=== PATIENT | female | born 1995 | race Asian ===

== ENCOUNTER 2021-08-29 11:48 | Emergency (ER) | payer SELFPAY ==
[2021-08-29 13:35] LABS: Absolute Lymphocytes (CBC) 1.2 K/uL (0.7-4.9); Hematocrit 38.3 % (36.0-45.0); Lymphocytes % 21.5 % (15.3-44.8); MPV 8.2 fL (7.6-11.3); RBC Red Blood Cell Count 4.24 M/uL (3.86-4.86)
[2021-08-29 13:52] LABS: Protime INR 0.95
[2021-08-29 15:28] LABS: ALT/SGPT 19 U/L (12-78); AST/SGOT 13 U/L (15-37); Albumin 4.3 g/dL (3.4-5.0); Alkaline Phosphatase 47 U/L (45-117); BUN Blood Urea Nitrogen 9 mg/dL (7-18); Bicarbonate 28 mmol/L (21-32); Bilirubin Direct 0.2 mg/dL (0-0.2); Bilirubin Total 0.6 mg/dL (0.2-1.0); Glucose Level 100 mg/dL (74-106); Magnesium 2.4 mg/dL (1.8-2.4); Protein, Total 8.4 g/dL (6.4-8.2); Sodium Level 140 mmol/L (136-145); Troponin (Emerg Dept Use Only) < 0.02 ng/mL (0.0-0.045)
--- NOTE | 2021-08-29 16:20 | RAD REPORT ---
EXAM DESCRIPTION: Kobe Nolasco (2 Views)08/29/2021 4:14 pm CLINICAL HISTORY: Syncope COMPARISON: None FINDINGS: The lungs appear clear of acute infiltrate. The heart is normal size IMPRESSION: No acute abnormalities displayed
--- NOTE | 2021-08-29 17:33 | ER ---
Nurse's Notes [facility] Name: Marci Girard Age: 26 yrs Sex: Female : 1995 Arrival Date: 08/29/2021 Time: 11:53 Bed Waiting Private MD: Diagnosis: Syncope Near;Nausea with vomiting, unspecified Presentation: 08/29 11:59 Chief complaint: Patient states: syncope while at work. pt reported not sleeping well manrique and not eating much d/t work. Coronavirus screen: Vaccine status: Patient reports receiving the 2nd dose of the covid vaccine. Ebola Screen: Patient denies travel to an Ebola-affected area in the 21 days before illness onset. Initial Sepsis Screen: Does the patient meet any 2 criteria? No. Patient's initial sepsis screen is negative. Does the patient have a suspected source of infection? No. Patient's initial sepsis screen is negative. Risk Assessment: Do you want to hurt yourself or someone else? Patient reports no desire to harm self or others. Onset of symptoms was August 29, 2021. 11:59 Method Of Arrival: EMS: [facility] 11:59 Acuity: [place] 3 manrique Triage Assessment: 12:03 General: Appears in no apparent distress. Behavior is cooperative. manrique 17:38 Neuro: Reports a syncopal episode. 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 - Social history:: Smoking status: Patient denies any tobacco usage or history of. Screenin:35 Abuse screen: Denies threats or abuse. Denies injuries from another. Nutritional manrique screening: No deficits noted. Tuberculosis screening: No symptoms or risk factors identified. Fall Risk None identified. Assessment: 17:35 Pain: Denies pain. Neuro: Level of Consciousness is awake, alert, obeys commands, manrique Oriented to person, place, time, situation. Cardiovascular: Reports syncope, Rhythm is regular. Vital Signs: 11:59 BP 119 / 89; Pulse 100; Resp 18; Temp 98.2(O); Pulse Ox 100% ; Weight 54.43 kg; Height manrique 5 ft. 4 in. (162.56 cm); 11:59 Body Mass Index 20.60 (54.43 kg, 162.56 cm) manrique ED Course: 11:53 Patient arrived in ED. 3 12:02 Buzz Mario PA is PHCP. rashawn 12:02 Buzz Burch MD is Attending Physician. cp 12:03 Triage completed. manrique 16:14 XRAY Chest Pa And Lat (2 Views) In Process Unspecified. EDMS 17:35 Patient has correct armband on for positive identification. manrique 17:35 No provider procedures requiring assistance completed. Accessed Maintain EMS IV. manrique Dressing intact. Gauge \T\ site: 20g lac. 17:37 IV discontinued. manrique 17:38 Arm band placed on. manrique Administered Medications: No medications were administered Outcome: 17:32 Discharge ordered by . cp 17:35 Discharged to home ambulatory. manrique 17:35 Condition: good 17:35 Discharge instructions given to patient, Prescriptions given X 1. 17:39 Patient left the ED. manrique Signatures: Dispatcher [employer] EDTN Buzz Mario PA PA cp Herrera, Deanna [facility] Ina-StagerCatherine, RN RN manrique
--- NOTE | 2021-08-29 17:33 | EDPHYS ---
Physician Documentation [facility] Name: Marci Girard Age: 26 yrs Sex: Female : 1995 Arrival Date: 08/29/2021 Time: 11:53 Bed Waiting Private MD: ED Physician Buzz Burch HPI: 08/29 12:03 This 26 yrs old Female presents to ER via EMS with complaints of Syncope. cp 12:03 The patient has experienced syncope, lost consciousness. Onset: The symptoms/episode cp began/occurred just prior to arrival. Duration: This was a single episode, that lasted an unknown period of time. Associated injury: The patient did not suffer any apparent associated injury. 12:05 Patient reports she was at work and in restroom, vomited and awaken by co-worker. cp Patient denies chest pain, abdominal pain. 12:05 Current symptoms: Currently, the patient is not experiencing any symptoms, the patient cp feels back to baseline. 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 - Social history:: Smoking status: Patient denies any tobacco usage or history of. ROS: 12:10 Constitutional: Negative for body aches, chills, fever, poor PO intake. cp 12:10 Eyes: Negative for injury, pain, redness, and discharge. cp 12:10 ENT: Negative for ear pain, sore throat, difficulty swallowing, difficulty handling secretions. 12:10 Cardiovascular: Negative for chest pain, edema, palpitations. 12:10 Respiratory: Negative for cough, shortness of breath, wheezing. 12:10 Abdomen/GI: Positive for nausea and vomiting, Negative for abdominal pain, diarrhea, constipation, hematemesis, black/tarry stool, rectal bleeding. 12:10 : Negative for urinary symptoms. 12:10 Neuro: Positive for syncope, Negative for altered mental status, headache, numbness, weakness. 12:10 All other systems are negative. Exam: 12:15 Constitutional: The patient appears in no acute distress, alert, awake, comfortable, cp non-diaphoretic, non-toxic, well developed, well nourished. 12:15 Head/Face: Normocephalic, atraumatic. cp 12:15 Eyes: Periorbital structures: appear normal, Pupils: equal, round, and reactive to light and accomodation, Extraocular movements: intact throughout, Conjunctiva: normal, no exudate, no injection, Sclera: no appreciated abnormality, Lids and lashes: appear normal, bilaterally. 12:15 ENT: External ear(s): are unremarkable, Ear canal(s): are normal, clear, TM's: dullness, bilaterally, Nose: is normal, Mouth: Lips: moist, Oral mucosa: pink and intact, moist, Posterior pharynx: Airway: no evidence of obstruction, patent, swelling, is not appreciated, erythema, is not appreciated, exudate, is not appreciated. 12:15 Neck: ROM/movement: is normal, is supple, without pain, no range of motions limitations, no nuchal rigidity. 12:15 Chest/axilla: Inspection: normal. 12:15 Cardiovascular: Rate: tachycardic, Rhythm: regular, Edema: is not appreciated, JVD: is not appreciated. 12:15 Respiratory: the patient does not display signs of respiratory distress, Respirations: normal, no use of accessory muscles, no retractions, labored breathing, is not present, Breath sounds: are clear throughout, no decreased breath sounds, no stridor, no wheezing. 12:15 Abdomen/GI: Inspection: abdomen appears normal, Palpation: abdomen is soft and non-tender, in all quadrants. 12:15 Back: pain, is absent, ROM is normal. 12:15 Neuro: Orientation: to person, place \T\ time. Mentation: is normal, Cerebellar function: is grossly normal, Motor: moves all fours, strength is normal, Sensation: is normal. Vital Signs: 11:59 BP 119 / 89; Pulse 100; Resp 18; Temp 98.2(O); Pulse Ox 100% ; Weight 54.43 kg; Height manrique 5 ft. 4 in. (162.56 cm); 11:59 Body Mass Index 20.60 (54.43 kg, 162.56 cm) manrique MDM: 13:00 Differential Diagnosis: cardiac arrhythmia, drug effect, emotional response, GI bleed, cp idiopathic syncope, , seizure, vasovagal episode. 17:32 Patient medically screened. 17:32 Data reviewed: vital signs, nurses notes, lab test result(s), EKG, radiologic studies, cp plain films. 17:32 Test interpretation: by ED physician or midlevel provider: ECG, plain radiologic cp studies. Counseling: I had a detailed discussion with the patient and/or guardian regarding: the historical points, exam findings, and any diagnostic results supporting the discharge/admit diagnosis, lab results, radiology results, to return to the emergency department if symptoms worsen or persist or if there are any questions or concerns that arise at home. Response to treatment: the patient's symptoms have markedly improved after treatment, and as a result, I will discharge patient. ED course: VSS. Labs, EKG and chest xray reviewed. Patient declined to provide urine sample and denies any concern about possible . Will discharge to home for continued monitoring. 08/29 12:03 Order name: Basic Metabolic Panel 08/29 12:03 Order name: CBC with Diff 08/29 12:03 Order name: LFT's; Complete Time: 16:45 08/29 16:45 Interpretation: Normal except: AST 13; TP 8.4; GLOB 4.1; A/G 1.0. 08/29 12:03 Order name: Magnesium; Complete Time: 16:45 cp 08/29 12:03 Order name: PT-INR; Complete Time: 16:45 cp 08/29 12:03 Order name: Troponin (emerg Dept Use Only); Complete Time: 16:45 cp 08/29 12:03 Order name: EKG; Complete Time: 12:04 08/29 12:03 Order name: Cardiac monitoring 08/29 12:03 Order name: EKG - Nurse/Tech 08/29 12:03 Order name: IV Saline Lock 08/29 12:03 Order name: D-Dimer; Complete Time: 16:45 cp 08/29 12:04 Order name: Basic Metabolic Panel; Complete Time: 16:45 EDMS 08/29 12:04 Order name: CBC with Automated Diff; Complete Time: 16:45 EDMS 08/29 15:54 Order name: XRAY Chest Pa And Lat (2 Views); Complete Time: 16:45 cp 08/29 12:03 Order name: Labs collected and sent 08/29 12:03 Order name: O2 Per Protocol cp 08/29 12:03 Order name: O2 Sat Monitoring cp 08/29 12:03 Order name: Urine Dipstick-Ancillary (obtain specimen) cp 08/29 12:03 Order name: Urine Test (obtain specimen) cp 08/29 12:03 Order name: Orthostatics cp 08/29 13:57 Order name: Labs - recollect needed: green top only 3 Administered Medications: No medications were administered Disposition Summary: 08/29/21 17:32 Discharge Ordered Location: Home cp Problem: new cp Symptoms: have improved cp Condition: Stable cp Diagnosis - Syncope Near cp - Nausea with vomiting, unspecified cp Followup: cp - With: Private Physician - When: 2 - 3 days - Reason: Worsening of condition Discharge Instructions: - Discharge Summary Sheet cp - Nausea and Vomiting, Adult cp - Syncope cp - Form - Excuse from Work, School, or Physical Activity cp Forms: - Medication Reconciliation Form cp - Thank You Letter cp - Antibiotic Education cp - Prescription Opioid Use cp Prescriptions: - Zofran 4 mg Oral Tablet - take 1 tablet by ORAL route every 12 hours As needed; 20 tablet; Refills: 0, cp Product Selection Permitted Addendum: 08/31/2021 09:02 Co-signature as Attending Physician, Buzz Burch MD I agree with the assessment and c manrique plan of care. Signatures: Dispatcher [employer] Buzz Ribera MD MD cha Page, Corey, PA PA Genna Rodriguez 3 Catherine Mathew RN RN manrique
[2021-08-29 17:54] VITALS: BP 119/89; TEMP 98.2; O2SAT 100
== END 2021-08-29 17:39 | disposition home or self-care (01) ==
LOC: ER 11:48
DX: R55 Syncope and collapse (principal); R11.2 Nausea with vomiting, unspecified
CPT/HCPCS: 36415; 71046; 80048; 80076; 83735; 84484; 85025; 85379; 85610; 93005; 99284